=== PATIENT | female | born 1955 | race Caucasian/White ===

== ENCOUNTER 2016-08-07 17:42 | Emergency (ER) | payer MEDICAID ==
[~2016-08-07] VITALS: Ht 162.6 cm; Wt 127.6 kg
[~2016-08-07 17:42] MED LIST: ATOR10TA PO; BUSP15TA PO; DOCU1CAP39 PO; GLIP10TA6 PO; HYDR10SO PO; METO25 PO; OMEP20TA PO
[2016-08-07 17:47] VITALS: BP 147/85; PULSE 96; RESP 16; TEMP 97.5; O2SAT 96
[2016-08-07] MEDS ORDERED: SODIUM CHLOR 0.9% 1000 ML INJ 1,000 ML IV ONE ×2 (18:03→18:33)
[2016-08-07] MEDS ORDERED: METO25TA3 PO (18:05)
[2016-08-07] MEDS ORDERED: OMEP20TA PO (18:05)
[2016-08-07] MEDS ORDERED: GABA300C5 PO (18:05)
[2016-08-07] MEDS ORDERED: CLAR10CA3 PO (18:05)
[2016-08-07] MEDS ORDERED: LORA-373 PO (18:05)
[2016-08-07] MEDS ORDERED: GLIP10TA6 PO (18:05)
[2016-08-07] MEDS ORDERED: ELID1CRE TOPICAL (18:05)
[2016-08-07] MEDS ORDERED: HYDR-3583 PO (18:05)
[2016-08-07] MEDS ORDERED: BUSP15TA PO (18:05)
[2016-08-07] MEDS ORDERED: ATOR10TA15 PO (18:05)
[2016-08-07] MEDS ORDERED: TRIA0.022 TOPICAL (18:05)
[2016-08-07] MEDS ORDERED: ROPI2TAB PO (18:05)
--- NOTE | 2016-08-07 18:05 | PD ---
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 Patient had blood work done yesterday that was nonfasting and her blood glucose was apparently 489. The patient reports increased thirst over the last 3 days. No fevers, chills, cough, recent illness. No nausea, vomiting , or diarrhea. No chest pain or dyspnea. PFSH Past Medical History Arthritis: Yes Autoimmune Disease: No Anxiety: Yes Cancer: Yes (Lung) Cardiovascular Problems: No High Cholesterol: Yes Diabetes: Yes Patient Takes Glucophage: No Diminished Hearing: No Diverticulitis: Yes Endocrine: Yes Fibromyalgia: Yes Gastrointestinal Disorders: Yes (gastric ulcer ) GERD: Yes Genitourinary: No Hepatitis: No Hiatal Hernia: Yes Hypertension: Yes Immune Disorder: Yes (Lupus, fibromyalgia ) Musculoskeletal: Yes (back arthritis) Neurologic: No Psychiatric: No Reproductive: No Respiratory: No Immunizations Current: Yes Thyroid Disease: No Ulcer: Yes Tetanus Vaccination: Unknown Influenza Vaccination: Yes ?: Not Menopausal: Yes Past Surgical History Abdominal Surgery: Yes (Colostomy w/ reversal) AICD: No Cardiac Surgery: No Cholecystectomy: Yes Ear Surgery: No Endocrine Surgery: No Eye Surgery: Yes (BL cataracts ) Genitourinary Surgery: No Gynecologic Surgery: Yes (hysterectomy ) Hysterectomy: Yes Joint Replacement: No Oral Surgery: No Pacemaker: No Thoracic Surgery: Yes (LL lobectomy ) Other Surgery: Yes Social History Alcohol Use: No Tobacco Use: No Substance Use: No Allergies-Medications (Allergen,Severity, Reaction): Coded Allergies: Dilaudid (Verified Allergy, Severe, HIVES, 08/07/16) Sulfa (Verified Allergy, Unknown, UNKNOWN OCCURED A CHILD, 08/07/16) Reported Meds & Prescriptions Reported Meds & Active Scripts Active Reported Elidel 1% Topical (Pimecrolimus 1% Topical) 30 Gram Cream 1 Applic TOPICAL BID Triamcinolone Topical 0.025 % Oint 1 Applic TOPICAL EVERY OTHER DAY Claritin (Loratadine) 10 Mg Cap 10 Mg PO DAILY PRN Lorazepam 0.5 Mg Tab 0.5 Mg PO Q8H Ropinirole 2 Mg Tab 2 Mg PO HS Atorvastatin (Atorvastatin Calcium) 10 Mg Tab 10 Mg PO HS Hydrocodone-Acetaminophen 10-325 mg Tab 1 Tab PO QID Glipizide 10 Mg Tab 10 Mg PO DAILY Take 30 minutes before a meal Gabapentin 300 Mg Cap 300 Mg PO TID Metoprolol Tartrate 25 Mg Tab 25 Mg PO BID Buspirone (Buspirone HCl) 15 Mg Tab 15 Mg PO TID Omeprazole 20 Mg Tab 20 Mg PO DAILY Review of Systems Except as stated in HPI: all other systems reviewed are Neg Physical Exam Narrative GENERAL: Well-developed, well-nourished, overweight, comfortable, no acute distress. SKIN: Focused skin assessment warm/dry. HEAD: Atraumatic. Normocephalic. EYES: Pupils equal and round. No scleral icterus. No injection or drainage. ENT: No nasal bleeding or discharge. Mucous membranes pink and dry. NECK: Trachea midline. No JVD. CARDIOVASCULAR: Regular rate and rhythm. RESPIRATORY: No accessory muscle use. Clear to auscultation. Breath sounds equal bilaterally. GASTROINTESTINAL: Abdomen soft, non-tender, nondistended. MUSCULOSKELETAL: No obvious deformities. No clubbing. No cyanosis. No edema. NEUROLOGICAL: Awake and alert. No obvious cranial nerve deficits. Motor grossly within normal limits. Normal speech. PSYCHIATRIC: Appropriate mood and affect; insight and judgment normal. Data Data Last Documented VS Vital Signs Date Time Temp Pulse Resp B/P Pulse Ox O2 Delivery O2 Flow Rate FiO2 08/07/16 19:31 86 18 139/67 97 Room Air 08/07/16 17:47 97.5 Orders Electrocardiogram (08/07/16 18:03) Complete Blood Count With Diff (08/07/16 18:03) Comprehensive Metabolic Panel (08/07/16 18:03) Beta Hydroxybutyrate (Acetone) (08/07/16 18:03) Urinalysis - C+S If Indicated (08/07/16 18:03) Blood Gas Venous (Vbg) (08/07/16 18:03) Ecg Monitoring (08/07/16 18:03) Iv Access Insert/Monitor (08/07/16 18:03) Oximetry (08/07/16 18:03) NPO (08/07/16 18:03) Sodium Chlor 0.9% 1000 Ml Inj (Ns 1000 M (08/07/16 18:03) Sodium Chlor 0.9% 1000 Ml Inj (Ns 1000 M (08/07/16 18:33) Sodium Chloride 0.9% Flush (Ns Flush) (08/07/16 18:15) Ckmb (Isoenzyme) Profile (08/07/16 18:25) Troponin I (08/07/16 18:25) CKMB (08/07/16 18:25) CKMB% (08/07/16 18:25) Insulin Human Regular Inj (Novolin R Inj (08/07/16 19:15) Labs Laboratory Tests Test 08/07/16 08/07/16 08/07/16 18:20 18:25 18:30 Urine Color YELLOW Urine Turbidity HAZY Urine pH 5.5 Urine Specific [place] GREATER THAN 1.035 Urine Protein 30 mg/dL Urine Glucose (UA) 1000 OR GREATER mg/dL Urine Ketones 15 mg/dL Urine Occult Blood NEG Urine Nitrite NEG Urine Bilirubin NEG Urine Leukocyte Esterase NEG Urine RBC 0-3 /hpf Urine WBC 0-2 /hpf Urine Squamous Epithelial 0-5 /hpf Cells Urine Calcium Oxalate Crystals FEW /hpf Urine Bacteria RARE /hpf Urine Yeast (Budding) RARE Microscopic Urinalysis Comment CULT NOT INDICATED White Blood Count 8.4 TH/MM3 Red Blood Count 5.28 MIL/MM3 Hemoglobin 14.6 GM/DL Hematocrit 44.2 % Mean Corpuscular Volume 83.7 FL Mean Corpuscular Hemoglobin 27.7 PG Mean Corpuscular Hemoglobin 33.1 % Concent Red Cell Distribution Width 13.7 % Platelet Count 220 TH/MM3 Mean Platelet Volume 8.5 FL Neutrophils (%) (Auto) 67.8 % Lymphocytes (%) (Auto) 23.7 % Monocytes (%) (Auto) 7.0 % Eosinophils (%) (Auto) 1.0 % Basophils (%) (Auto) 0.5 % Neutrophils # (Auto) 5.7 TH/MM3 Lymphocytes # (Auto) 2.0 TH/MM3 Monocytes # (Auto) 0.6 TH/MM3 Eosinophils # (Auto) 0.1 TH/MM3 Basophils # (Auto) 0.0 TH/MM3 CBC Comment DIFF FINAL Differential Comment Sodium Level 139 MEQ/L Potassium Level 4.0 MEQ/L Chloride Level 103 MEQ/L Carbon Dioxide Level 24.7 MEQ/L Anion Gap 11 MEQ/L Blood Urea Nitrogen 28 MG/DL Creatinine 1.30 MG/DL Estimat Glomerular Filtration 42 ML/MIN Rate Random Glucose 294 MG/DL Calcium Level 9.6 MG/DL Total Bilirubin 0.4 MG/DL Aspartate Amino Transf 44 U/L (AST/SGOT) Alanine Aminotransferase 67 U/L (ALT/SGPT) Alkaline Phosphatase 114 U/L Total Creatine Kinase 159 U/L Creatine Kinase MB 1.9 NG/ML Troponin I LESS THAN 0.02 NG/ML Total Protein 7.7 GM/DL Albumin 3.7 GM/DL B-Hydroxybutyrate 0.11 MMOL/L Blood Gas Puncture Site IV Blood Gas Patient Temperature 98.6 Venous Blood pH 7.37 Venous Blood Partial Pressure 39 mmHg CO2 Venous Blood Partial Pressure 60 mmHg O2 Venous Blood HCO3 22 mmol/L Venous Blood Oxygen Saturation 87 % Venous Blood Oxygen Content 16.9 Vol % Venous Blood Base Excess -2.3 mmol/L Blood Gas Inspired Oxygen 21 % MDM Medical Decision Making Medical Screen Exam Complete: Yes Emergency Medical Condition: Yes Medical Record Reviewed: Yes Interpretation(s) EKG: Sinus, rate 94, normal axis, normal intervals, T-wave inversions and slight ST depressions in V1 through V4 which are seen on prior EKG on 09/23/15. Differential Diagnosis Hyperglycemia, DKA, metabolic abnormality Narrative Course Vital signs reviewed. CBC is unremarkable. CMP is markable for BUN 20, creatinine 1.3, GFR 42 which is slightly worse than her baseline, random glucose 294, AST 44, ALT 67, otherwise unremarkable Cardiac enzymes are negative. Beta hydroxybutyrate is 0.11. Venous pH is 7.37. UA shows 30 protein, greater than 1000 glucose, 15 ketones, few oxalate crystals , not suggestive of UTI. Patient was given 2 L of normal saline IV after arriving to the emergency department. She was given insulin after labs resulted. She is not in DKA. EKG shows old T-wave inversions and slight ST depressions in V1 through V4 which were seen on EKG from 09/23/15. Cardiac enzymes are negative. She is not having any chest pain. Patient was given 6 units of IV insulin and repeat BGL was 160s. Patient has history of diabetes and is on glipizide. She has an appointment with her primary care physician tomorrow. Again she is not in DKA. She is stable for discharge home with outpatient follow-up. She was informed on when to return to the emergency department. She verbalizes understanding and agreement with plan. Diagnosis Primary Impression: Hyperglycemia Referrals: Primary Care Physician 1 day Additional Instructions: Follow-up with your primary care physician tomorrow as scheduled. Return to the emergency department for worsening symptoms or any other concerns. Disposition: 01 DISCHARGE HOME Condition: Stable Yvan Gorman MD August 07, 2016 18:05
[2016-08-07] MEDS ORDERED: SODIUM CHLORIDE 0.9% FLUSH 10 ML FLUSH IVF PRN (18:15)
[2016-08-07 18:36] LABS: BLOOD GAS VENOUS BASE EXCESS -2.3 mmol/L (-2-2); BLOOD GAS VENOUS HCO3 22 mmol/L (22-26); BLOOD GAS VENOUS O2 CONTENT 16.9 Vol % (9.0-17.0); BLOOD GAS VENOUS O2 HGB SAT 87 % (70-76); BLOOD GAS VENOUS PCO2 39 mmHg (44-48); BLOOD GAS VENOUS PO2 60 mmHg (35-40); BLOOD GAS VENOUS pH 7.37 (7.360-7.400); CRITICAL VALUE NO; TEMP CORR TO 98.6
[2016-08-07 18:37] LABS: DRAW SITE IV; FIO2 21 %; STAT YES
[2016-08-07 18:40] LABS: AUTOMATED NEUTROPHIL # 5.7 TH/MM3 (1.8-7.7); BASOPHIL % 0.5 % (0.0-2.0); EOSINOPHIL # 0.1 TH/MM3 (0-0.4); HEMATOCRIT 44.2 % (35.0-46.0); HEMO FLAGS DIFF FINAL; LYMPH % 23.7 % (9.0-44.0); MEAN CELL VOLUME 83.7 FL (80.0-100.0); MEAN CORPUSCULAR HEMOGLOBIN 27.7 PG (27.0-34.0); MEAN CORPUSCULAR HGB CONC 33.1 % (32.0-36.0); NEUT % 67.8 % (16.0-70.0); PLATELET COUNT 220 TH/MM3 (150-450); RED BLOOD COUNT 5.28 MIL/MM3 (4.00-5.30); RED CELL DISTRIBUTION WIDTH 13.7 % (11.6-17.2); WHITE BLOOD COUNT 8.4 TH/MM3 (4.0-11.0)
[2016-08-07 18:46] LABS: BLOOD, URINE NEG (NEG); KETONE, URINE 15 mg/dL (NEG); NITRITE,URINE NEG (NEG); PH, URINE 5.5 (5.0-8.5)
[2016-08-07 18:51] LABS: GLUCOSE,URINE 1000 OR GREATER mg/dL (NEG)
[2016-08-07 18:55] LABS: CHLORIDE 103 MEQ/L (98-107); SODIUM (NA) 139 MEQ/L (136-145)
[2016-08-07 18:57] LABS: BACTERIA, URINE RARE /hpf; CALCIUM OXALATE CRYSTALS,URINE FEW /hpf; RBC, URINE 0-3 /hpf (0-3); SQUAMOUS EPITHELIAL CELL URINE 0-5 /hpf (0-5); URINE COLOR YELLOW (YELLW/STRAW); WBC, URINE 0-2 /hpf (0-5)
[2016-08-07 18:58] VITALS: RESP 18; O2SAT 96
[2016-08-07 18:58] LABS: COMMENT (UR) CULT NOT INDICATED; CULTURE IF INDICATED CULT NOT INDICATED
[2016-08-07 18:59] LABS: ANION GAP 11 MEQ/L (5-15); BICARBONATE 24.7 MEQ/L (21.0-32.0); BLOOD UREA NITROGEN 28 MG/DL (7-18)
[2016-08-07 19:02] LABS: ALT (GPT) 67 U/L (10-53); AST (GOT) 44 U/L (15-37); GLOMERULAR FILTRATION RATE 42 ML/MIN (>89)
[2016-08-07 19:03] LABS: TOTAL BILIRUBIN ADULT 0.4 MG/DL (0.2-1.0)
[2016-08-07 19:05] LABS: ALKALINE PHOSPHATASE 114 U/L (45-117); CREATINE KINASE 159 U/L (26-192)
[2016-08-07 19:13] LABS: BETA-HYDROXYBUTYRATE 0.11 MMOL/L (0.00-0.39)
[2016-08-07] MEDS ORDERED: INSULIN HUMAN REGULAR 1,000 UNITS/10 ML VIAL IV PUSH ONE (19:15)
[2016-08-07 19:17] LABS: CKMB 1.9 NG/ML (0.5-3.6)
[2016-08-07 19:31] VITALS: BP 139/67; PULSE 86; RESP 18; O2SAT 97
[2016-08-07 20:32] VITALS: BP 136/72; PULSE 80; RESP 18; O2SAT 97
--- NOTE | 2016-08-08 05:49 | EKG ---
Date Performed: 08/07/2016 Time Performed: 18:16:12 PTAGE: 61 years EKG: Sinus rhythm Possible anterior infarct - age undetermined Low QRS voltages in precordial leads Nonspecific ST-T c hanges Abnormal ECG PREVIOUS TRACING : 10/11/2015 06.08 Compared to prior tracing no significant change DOCTOR: Daljit Gutierrez Interpretating Date/Time 08/08/2016 05:48:59
== END 2016-08-07 20:37 | disposition home or self-care (01) ==
LOC: PHED 17:42
DX: E11.65 Type 2 diabetes mellitus with hyperglycemia (principal); M32.9 Systemic lupus erythematosus, unspecified; E78.00 Pure hypercholesterolemia, unspecified; M79.7 Fibromyalgia; I10 Essential (primary) hypertension; R94.31 Abnormal electrocardiogram [ECG] [EKG]
CPT/HCPCS: 80053; 81001; 82010; 82550; 82552; 82805; 84484; 85025; 93005; 96361; 96374; 99284; J1815; J7030

== ENCOUNTER 2017-03-20 00:32 | Emergency (ER) | payer MEDICAID ==
[~2017-03-20] VITALS: Ht 162.6 cm; Wt 126.4 kg
[~2017-03-20 00:32] MED LIST changes: -ATOR10TA PO; +ATOR10TA15 PO; +CLAR10CA3 PO; -DOCU1CAP39 PO; +ELID1CRE TOPICAL; +GABA300C5 PO; +HYDR-3583 PO; -HYDR10SO PO; +LORA0.5T PO; -METO25 PO; +METO25TA3 PO; -OMEP20TA PO; +OMEP20TA93 PO; +ROPI2TAB PO; +TRIA0.022 TOPICAL
[2017-03-20 00:40] VITALS: BP 133/70; PULSE 79; RESP 12; TEMP 98.2; O2SAT 98
[2017-03-20] MEDS ORDERED: TETANUS/DIPHTHERIA TOXOID ADULT 0.5 ML VIAL IM ONE (01:00)
--- NOTE | 2017-03-20 01:00 | PD ---
HPI Chief Complaint: Fall Time Seen by Provider: 00:52 Travel History International Travel<30 days: No Contact w/Intl Traveler<30days: No Traveled to known affect area: No History of Present Illness HPI 61-year-old female presents to the emergency department by private vehicle for evaluation of multiple contusions sustained status post a non-syncopal trip and fall approximately 2 hours prior to arrival to the emergency department. Patient reports she was in [place] walking through a parking lot and tripped over a concrete parking block on the ground. Patient states she didn't hit her head against her hands but did not hit her head against the ground. Patient states she did not have loss of consciousness. Patient does not complain of headache or neck pain. Patient complains of left forearm pain and abrasion without deformity left chest wall pain left knee pain and left foot pain. Patient states that paramedics did assess her at the scene of the fall. They recommended that she go to the emergency room to be evaluated but she declined transport to the emergency room in [place] as she lives here locally. Patient states she did take one of her prescription Lortab. Patient states that she was able to [facility] and then come to the emergency room for further evaluation. Patient takes no blood thinning agent except for aspirin. PFSH Past Medical History Narrative Medical Cholecystectomy hysterectomy lobectomy Arthritis anxiety lung cancer with lobectomy dyslipidemia diabetes diverticulitis hypertension lupus fibromyalgia peptic ulcer disease partial colectomy colostomy with reversal no tobacco use; nursing notes reviewed Arthritis: Yes Autoimmune Disease: No Anxiety: Yes Cancer: Yes (Lung) Cardiovascular Problems: No High Cholesterol: Yes Diabetes: Yes Diminished Hearing: No Diverticulitis: Yes Endocrine: Yes Fibromyalgia: Yes Gastrointestinal Disorders: Yes (gastric ulcer ) GERD: Yes Genitourinary: No Hepatitis: No Hiatal Hernia: Yes Hypertension: Yes Immune Disorder: Yes (Lupus, fibromyalgia ) Musculoskeletal: Yes (back arthritis) Neurologic: No Psychiatric: No Reproductive: No Respiratory: No Immunizations Current: Yes Thyroid Disease: No Ulcer: Yes Menopausal: Yes Past Surgical History Abdominal Surgery: Yes (Colostomy w/ reversal) AICD: No Cardiac Surgery: No Cholecystectomy: Yes Ear Surgery: No Endocrine Surgery: No Eye Surgery: Yes (BL cataracts ) Genitourinary Surgery: No Gynecologic Surgery: Yes (hysterectomy ) Hysterectomy: Yes Joint Replacement: No Oral Surgery: No Pacemaker: No Thoracic Surgery: Yes (LL lobectomy ) Other Surgery: Yes Social History Alcohol Use: No Tobacco Use: No Substance Use: No Allergies-Medications (Allergen,Severity, Reaction): Coded Allergies: hydromorphone (Verified Allergy, Severe, HIVES, 03/20/17) Sulfa (Sulfonamide Antibiotics) (Verified Allergy, Unknown, UNKNOWN OCCURED A CHILD, 03/20/17) Reported Meds & Prescriptions Reported Meds & Active Scripts Active Reported Metformin (Metformin HCl) 500 Mg Tab 500 Mg PO TIDPC Omeprazole 20 Mg Tab 20 Mg PO BID Glipizide ER (Glipizide) 10 Mg Fan 10 Mg PO BID Take with breakfast or first main meal of the day Atorvastatin (Atorvastatin Calcium) 10 Mg Tab 10 Mg PO HS Hydrocodone-Acetaminophen 10-325 mg Tab 1 Tab PO QID Gabapentin 300 Mg Cap 300 Mg PO TID Metoprolol Tartrate 25 Mg Tab 25 Mg PO BID Review of Systems Except as stated in HPI: all other systems reviewed are Neg Physical Exam Narrative GENERAL: Well-developed well-nourished obese female in no acute distress no respiratory distress GCS 15 SKIN: Warm and dry. Several abrasions superficial to the left forearm, left breast, left knee. HEAD: Atraumatic. Normocephalic. No scalp soft tissue tenderness or swelling or abrasion. EYES: Pupils equal and round. Extraocular muscle intact. No scleral icterus. No injection or drainage. ENT: No nasal bleeding or discharge. Mucous membranes pink and moist. NECK: Trachea midline. No JVD. CARDIOVASCULAR: Regular rate and rhythm. Chest wall: Left breast tenderness with mild abrasion no ecchymosis no soft tissue swelling. RESPIRATORY: No accessory muscle use. Clear to auscultation. Breath sounds equal bilaterally. GASTROINTESTINAL: Abdomen soft, non-tender, nondistended. Hepatic and splenic margins not palpable. MUSCULOSKELETAL: Extremities without clubbing, cyanosis, or edema. No obvious deformities. Distally bilateral upper extremities and bilateral lower extremities motor strength is 5 over 5 sensory exam intact capillary refill brisk and less than 2 seconds radial and dorsalis pedis pulses 2+ to palpation. No deformity, no joint swelling. NEUROLOGICAL: Awake and alert. GCS 15. No obvious cranial nerve deficits. Motor grossly within normal limits. Five out of 5 muscle strength in the arms and legs. Normal speech. PSYCHIATRIC: Appropriate mood and affect; insight and judgment normal. Data Data Last Documented VS Vital Signs Date Time Temp Pulse Resp B/P (MAP) Pulse Ox O2 Delivery O2 Flow Rate FiO2 03/20/17 01:13 95 Room Air 03/20/17 00:40 98.2 79 12 133/70 (91) Orders Orders Forearm (2vws) (03/20/17 ) Ribs, Uni (W/Exp Cxr-Min 3vw) (03/20/17 ) Knee, Complete (4vws) (03/20/17 ) Foot, Complete ([id number]) (03/20/17 ) Tetanus/Diphtheria Tox Adult (Tetanus/Di (03/20/17 01:00) Ice/Cold Pack (03/20/17 00:52) Wound Care (03/20/17 00:52) MDM Medical Decision Making Medical Screen Exam Complete: Yes Emergency Medical Condition: Yes Medical Record Reviewed: Yes Interpretation(s) (L) FA XR: FINDINGS: Two view examination of the left forearm demonstrates no evidence of fracture or dislocation. Bony mineralization is normal. The soft tissue structures are intact. CONCLUSION: No acute disease. Christopher Marin MD on March 20, 2017 at 1:55 Board Certified Radiologist. This report was verified electronically. (L) ribs: FINDINGS: There are deformities of the left seventh, eighth, and ninth ribs. These appear chronic. Acute fracture lines are not seen. No acute fractures is seen. The heart size is normal. The lungs are clear. No pleural effusion or pneumothorax is seen. Spurs are seen in the thoracic spine. Clips are seen in the right upper quadrant. CONCLUSION: Deformities at the left seventh through ninth ribs which appear chronic. An acute fracture is not clearly seen. Christopher Marin MD on March 20, 2017 at 1:56 Board Certified Radiologist. This report was verified electronically. L knee xr:FINDINGS: Four view examination of the left knee demonstrates no evidence of fracture or dislocation. Bony mineralization is normal. There is a spur at the anterior superior aspect of the patella. The articular surfaces are intact. The suprapatellar soft tissues have a normal configuration. CONCLUSION: Patellar spur. Christopher Marin MD on March 20, 2017 at 1:58 Board Certified Radiologist. This report was verified electronically. (L) foot xr: FINDINGS: Three view examination of the left foot demonstrates no soft tissue swelling, dislocation, or fracture. The tarsal bones appear intact. The interphalangeal and metatarsophalangeal joints are intact. Calcaneal spurs are seen at the plantar aponeurosis and Achilles tendon attachment sites.. Bony mineralization is normal. CONCLUSION: No acute abnormality is seen. There are calcaneal spurs. Christopher Marin MD on March 20, 2017 at 1:59 Board Certified Radiologist. This report was verified electronically. Differential Diagnosis Contusion, abrasion, fracture, subluxation, dislocation Narrative Course 61-year-old female with multiple contusions and abrasions tetanus status updated imaging studies ordered ice pack applied and wounds cleansed and dressings applied Diagnosis Primary Impression: Contusion of left chest wall Qualified Codes: S20.212A - Contusion of left front wall of thorax, initial encounter Additional Impressions: Left knee sprain Qualified Codes: S83.92XA - Sprain of unspecified site of left knee, initial encounter Strain of foot, left Qualified Codes: S96.912A - Strain of unspecified muscle and tendon at ankle and foot level, left foot, initial encounter Abrasion of forearm, left Qualified Codes: S50.812A - Abrasion of left forearm, initial encounter Referrals: Primary Care Physician call for appointment Patient Instructions: General Instructions Additional Instructions: Apply ice intermittently to areas of soft tissue swelling and injury for the first 12-24 hours then moist to Take chronic medications as chronically prescribed Keep wounds clean and dry per wound instructions Use knee immobilizer for left knee over the next 2-3 days for support as needed Follow-up with primary care provider call office in a.m. to schedule follow-up appointment Return to the emergency department for any concerns or change in condition Med/Other Pt SpecificInfo: No Change to Meds Disposition: 01 DISCHARGE HOME Condition: Stable Qiana Berger MD Mar 20, 2017 01:00
[2017-03-20] MEDS ORDERED: OMEP20TA93 PO (01:26)
[2017-03-20] MEDS ORDERED: GLIP1TAB51 PO (01:26)
[2017-03-20] MEDS ORDERED: METF500T PO (01:26)
--- NOTE | 2017-03-20 01:57 | RADRPT ---
EXAM DATE/TIME: 03/20/2017 01:23 [facility] COMPARISON: No previous studies available for comparison. INDICATIONS : Left forearm pain after fall. MEDICAL HISTORY : Hypertension. Carcinoma, lung. Gastroesophageal reflux disease.Diabetes. Ulcer. Hiatal hernia. Lupus. SURGICAL HISTORY : Hysterectomy. Colostomy.Left lung lobectomy. Reversal colostomy. ENCOUNTER: Initial ACUITY: 1 day PAIN SCORE: 7/10 LOCATION: Left distal forearm. FINDINGS: Two view examination of the left forearm demonstrates no evidence of fracture or dislocation. Bony m ineralization is normal. The soft tissue structures are intact. CONCLUSION: No acute disease. Christopher Marin MD on March 20, 2017 at 1:55 Board Certified Radiologist. This report was verified electronically.
--- NOTE | 2017-03-20 01:59 | RADRPT ---
EXAM DATE/TIME: 03/20/2017 01:23 [facility] COMPARISON: No previous studies available for comparison. INDICATIONS : Left side rib pain post fall. MEDICAL HISTORY : Hypertension. Carcinoma, lung. Gastroesophageal reflux disease.Diabetes. Ulcer. Hiatal hernia. Lupus. SURGICAL HISTORY : Hysterectomy. Colostomy.Left lung lobectomy. Reversal colostomy. ENCOUNTER: Initial ACUITY: 1 day PAIN SCORE: 7/10 LOCATION: Left chest FINDINGS: There are deformities of the left seventh, eighth, and ninth ribs. These appear chronic. Acute fractu re lines are not seen. No acute fractures is seen. The heart size is normal. The lungs are clear. No pleural effusion or pneumothorax is seen. Spurs are seen in the thoracic spine. Clips are seen in the right upper quadrant. CONCLUSION: Deformities at the left seventh through ninth ribs which appear chronic. An acute fracture is not junior angely seen. Christopher Marin MD on March 20, 2017 at 1:56 Board Certified Radiologist. This report was verified electronically.
--- NOTE | 2017-03-20 02:00 | RADRPT ---
EXAM DATE/TIME: 03/20/2017 01:23 [facility] COMPARISON: No previous studies available for comparison. INDICATIONS : Left knee pain post fall. MEDICAL HISTORY : Hypertension. Carcinoma, lung. Gastroesophageal reflux disease.Diabetes. Ulcer. Hiatal hernia. Lupus. SURGICAL HISTORY : Hysterectomy. Colostomy.Left lung lobectomy. Reversal colostomy. ENCOUNTER: Initial ACUITY: 1 day PAIN SCORE: 7/10 LOCATION: Left knee. FINDINGS: Four view examination of the left knee demonstrates no evidence of fracture or dislocation. Bony min eralization is normal. There is a spur at the anterior superior aspect of the patella. The articular surfaces are intact. The suprapatellar soft tissues have a normal configuration. CONCLUSION: Patellar spur. Christopher Marin MD on March 20, 2017 at 1:58 Board Certified Radiologist. This report was verified electronically.
--- NOTE | 2017-03-20 02:01 | RADRPT ---
EXAM DATE/TIME: 03/20/2017 01:23 [facility] COMPARISON: No previous studies available for comparison. INDICATIONS : Left foot pain post fall. MEDICAL HISTORY : Hypertension. Carcinoma, lung. Gastroesophageal reflux disease.Diabetes. Ulcer. Hiatal hernia. Lupus. SURGICAL HISTORY : Hysterectomy. Colostomy.Left lung lobectomy. Reversal colostomy. ENCOUNTER: Initial ACUITY: 1 day PAIN SCORE: 7/10 LOCATION: Left foot. FINDINGS: Three view examination of the left foot demonstrates no soft tissue swelling, dislocation, or fractur e. The tarsal bones appear intact. The interphalangeal and metatarsophalangeal joints are intact. Calcaneal spurs are seen at the plantar aponeurosis and Achilles tendon attachment sites.. Bony mine ralization is normal. CONCLUSION: No acute abnormality is seen. There are calcaneal spurs. Christopher Marin MD on March 20, 2017 at 1:59 Board Certified Radiologist. This report was verified electronically.
[2017-03-20 03:06] VITALS: BP 106/67
== END 2017-03-20 03:08 | disposition home or self-care (01) ==
LOC: PHED 00:32
DX: S20.212A Contusion of left front wall of thorax, initial encounter (principal); S83.92XA Sprain of unspecified site of left knee, initial encounter; S96.912A Strain of unspecified muscle and tendon at ankle and foot level, left foot, initial encounter; S50.812A Abrasion of left forearm, initial encounter; M19.90 Unspecified osteoarthritis, unspecified site; E78.00 Pure hypercholesterolemia, unspecified; E11.9 Type 2 diabetes mellitus without complications; M79.7 Fibromyalgia; I10 Essential (primary) hypertension; W01.0XXA Fall on same level from slipping, tripping and stumbling without subsequent striking against object, initial encounter; Y92.481 Parking lot as the place of occurrence of the external cause; Z79.84 Long term (current) use of oral hypoglycemic drugs; Z23 Encounter for immunization
CPT/HCPCS: 71101; 73090; 73564; 73630; 90471; 90714; 99284; L1830